=== PATIENT | male | born 1985 | race Two or more races ===

== ENCOUNTER 2020-08-17 14:49 | Emergency (ER) | payer SELFPAY ==
[~2020-08-17] VITALS: Ht 185.4 cm; Wt 109.0 kg
[2020-08-17] MEDS ORDERED: IBUPROFEN 400MG TABLET PO ONE (16:15)
[2020-08-17] MEDS ORDERED: HYDROCODONE/ACETAMINOPHEN 10/325MG TABLET PO ONE (16:15)
[2020-08-17 17:23] LABS: CLARITY URINE CLEAR (CLEAR); COLOR URINE DARK YELLOW (YELLOW); KETONES URINE TRACE (NEGATIVE); LEUKOCYTE ESTERASE URINE 1+ (NEGATIVE); NITRITE URINE NEGATIVE (NEGATIVE); OCCULT BLOOD URINE 3+ (NEGATIVE); PROTEIN URINE 1+ (NEGATIVE); UROBILINOGEN URINE 0.2 E.U./dL (0.2-1.0)
[2020-08-17 17:29] VITALS: BP 152/94
[2020-08-17 17:40] LABS: BASOPHILS % 0.2 % (0.0-2.0); EOSINOPHILS % 0.7 % (0.0-5.0); HEMATOCRIT. 48.8 % (42.0-52.0); HEMOGLOBIN. 16.7 g/dL (14.0-18.0); LYMPHOCYTES % 17.7 % (20.0-50.0); MEAN CORPUSCULAR HEMOGLOBIN 31.3 pg (28.0-32.0); MEAN CORPUSCULAR VOLUME 91.3 fL (80.0-94.0); NEUTROPHILS % 75.4 % (40.0-76.0); PLATELET 252 x1000/uL (130-400); RED BLOOD CELL COUNT 5.34 mill/uL (4.7-6.1); RED CELL DISTRIBUTION WIDTH 12.9 % (11.6-14.6)
[2020-08-17 17:53] LABS: CHLORIDE 105 mEq/L (98-107)
== END 2020-08-17 23:50 | disposition home or self-care (01) ==
LOC: ER 14:49
DX: N13.2 Hydronephrosis with renal and ureteral calculous obstruction (principal); R31.29 Other microscopic hematuria; F19.10 Other psychoactive substance abuse, uncomplicated
CPT/HCPCS: 36415; 76770; 80048; 80076; 81003; 85025; 93005; 99285